=== PATIENT | male | born 1970 | race Hispanic/Latino ===

== ENCOUNTER 2018-02-10 12:12 | Emergency (ER) | payer SELFPAY ==
[2018-02-10] MEDS ORDERED: MORPHINE 4 MG/ML SYR ONE (12:21)
[2018-02-10] MEDS ORDERED: ONDANSETRON 4 MG/2 ML VIAL ONE (12:22)
[2018-02-10 12:38] LABS: Absolute Lymphocytes (CBC) 3.7 K/uL (0.7-4.9); Basophils % 0.3 % (0-1.3); Eosinophils % 1.4 % (0-4.4); Hematocrit 41.7 % (39.6-49.0); Lymphocytes % 24.7 % (15.3-44.8); MCH 28.5 pg (27.0-35.0); MCV 83.8 fL (80-100); MPV 9.9 fL (7.6-11.3); Monocytes % 6.5 % (3.3-12.3); RBC Red Blood Cell Count 4.98 M/uL (4.33-5.43)
--- NOTE | 2018-02-10 12:41 | RAD REPORT ---
EXAM DESCRIPTION: RAD - Wrist Left 3 View - 02/10/2018 12:29 pm CLINICAL HISTORY: Left wrist pain status post fall FINDINGS: Comminuted, markedly displaced impacted fracture involves the distal radius. Comminuted fracture of the ulnar styloid process is seen. No dislocation is visualized
[2018-02-10] MEDS ORDERED: CEFAZOLIN/SWI 1gm 1 GM/10 ML SYR ONE (12:49)
[2018-02-10 13:00] LABS: Potassium 3.8 mmol/L (3.5-5.1)
--- NOTE | 2018-02-10 13:04 | RAD REPORT ---
EXAM DESCRIPTION: CT - Head C Spine Cap Debbie Espinoza - 02/10/2018 12:40 pm CLINICAL HISTORY: Trauma, head and neck injury. Chest, abdomen and pelvis pain. fall about 25' onto left side;Pain COMPARISON: No comparisons TECHNIQUE: CT head without contrast. CT cervical spine without contrast with coronal and sagittal reformatted images. CT chest, abdomen and pelvis with IV contrast (approximately 100 mL nonionic IV contrast) with dangelo l and sagittal reformatted images of the spine. All CT scans are performed using dose optimization technique as appropriate and may include automated exposure control or mA/KV adjustment according to patient size. FINDINGS: CT HEAD WITHOUT CONTRAST: No intracranial hemorrhage, hydrocephalus or extra-axial fluid collection. No areas of brain edema o r midline shift. The paranasal sinuses and mastoids are clear. The calvarium is intact. CT CERVICAL SPINE WITHOUT CONTRAST: No fracture or subluxation. The prevertebral soft tissues are normal in thickness. CT CHEST, ABDOMEN, PELVIS WITH CONTRAST: The lungs are clear.No pneumothorax or pericardial/pleural fluid. No evidence of solid organ laceration. No free fluid or free air in the abdomen. Focal nonspecific ar ea of fat stranding is seen in the right aspect of the intraperitoneal fat within the abdomen posteri shabana measuring 4 cm. This is of unclear etiology and clinical significance. A burst fracture is seen involving the T12 vertebral body with loss of approximately 15% of vertebral body height. No canal compromise of significant suspected. Mildly displaced left L2 and L3 transvers e process fracture seen. Fracture involving the left aspect of the L4 vertebral body is noted, predom inately involving the left inferolateral corner. IMPRESSION: T12 burst fracture without significant canal compromise. Vertebral body height loss is e stimated at 15%. Vertebral body fracture involving the left inferolateral corner of L4. Transverse process fractures on the left of L2 and L3. Focal nonspecific area fat stranding right intraperitoneal abdominal fat is nonspecific but may repre sent area of fat infarction.
--- NOTE | 2018-02-10 13:20 | RAD REPORT ---
EXAM DESCRIPTION: RAD - Forearm Left - 02/10/2018 12:58 pm CLINICAL HISTORY: PAIN Trauma COMPARISON: Wrist Left 3 View dated 02/10/2018 FINDINGS: Examination is limited by nonstandard anatomic positioning. Significantly displaced and co mminuted distal radius fracture is present. An elbow dislocation is not seen. Further bone detail is limited.
--- NOTE | 2018-02-10 13:35 | ER ---
Nurse's Notes [facility] Name: Farhana Villanueva Age: 47 yrs Sex: Male : 1970 Arrival Date: 02/10/2018 Time: 12:14 Bed 2 Private MD: Diagnosis: Other slipping, tripping and stumbling and falls-25" Presentation: 02/10 12:05 Presenting complaint: Patient states: fell off ladder, approx 25 feet, fell onto left iw side, open fracture to left wrist, c/o pain to left shoulder/arm, pain to neck, and lower back, denies hitting head, denies LOC. Care prior to arrival: None. Mechanism of Injury: Fall from ladder approximately 25 feet. Trauma event details: Injury occurred in the [facility]. 12:05 Acuity: DONG 2 iw 12:05 Method Of Arrival: Wheelchair iw 12:17 Transition of care: patient was not received from another setting of care. Onset of iw symptoms was February 10, 2018. Risk Assessment: Do you want to hurt yourself or someone else? Patient reports no desire to harm self or others. Initial Sepsis Screen: Does the patient meet any 2 criteria? No. Patient's initial sepsis screen is negative. Does the patient have a suspected source of infection? No. Patient's initial sepsis screen is negative. Trauma Activation: Alert Physician: ED Physician; Name: Dr. Mclean; Notified At: 12:06; Arrived At: 12:06 Physician: General Surgeon; Name: N/A; Notified At: 12:06; Arrived At: Specialty not needed Physician: Radiology; Name: Whitney; Notified At: 12:06; Arrived At: 12:06 Physician: Respiratory; Name: N/A; Notified At: 12:06; Arrived At: Specialty not needed Physician: Lab; Name: N/A; Notified At: 12:06; Arrived At: Specialty not needed Historical: - Allergies: 12:17 NKA; iw - Home Meds: 12:17 None [Active]; iw - PMHx: 12:17 None; iw - PSHx: 12:17 None; iw Screenin:17 Abuse screen: Denies threats or abuse. Denies injuries from another. Tuberculosis iw screening: No symptoms or risk factors identified. Primary Survey: 12:10 A: Airway: patent. Breathing/Chest: Respiratory pattern: regular, Respiratory effort: iw spontaneous, Breath sounds: clear, bilaterally. Chest inspection: symmetrical rise and fall of the chest. Circulation: Heart tones present. Pulses: palpable right radial artery, left radial artery, left carotid pulse and right carotid pulse. Skin color: pink, Skin temperature: warm, diaphoretic. Disability Alert. 12:15 Reassessment Airway Airway Oxygen No O2 Breathing/Chest Respiratory pattern Regular iw Respiratory effort Spontaneous Unlabored Chest inspection Symmetrical Circulation Heart rhythm Sinus rhythm Heart tones Present Color Artemus Disability Alert. Secondary Survey: 12:15 HEENT: No deficits noted. Head No injury/deformity Face No injury/deformity Eyes: No iw injury or deformity noted. to bilateral eyes. Ears: clear bilaterally. Nose: clear to bilateral nares. Gastrointestinal: Abdomen is soft, obese, Bowel sounds present in all quadrants. Palpation No deficit noted. Musculoskeletal: Range of motion: limited in left shoulder and left wrist Bony deformity noted of left wrist Reports pain in lumbar area, left low back, right low back and left arm. Injury Description: fracture to is located left wrist. 12:15 Musculoskeletal: Capillary refill < 3 seconds, in bilateral fingers. iw Assessment: 12:10 General: Appears uncomfortable, Behavior is cooperative, anxious. Pain: Complains of iw pain in posterior cervical area, lumbar area, left low back, right low back and left arm. Neuro: Level of Consciousness is awake, alert, obeys commands, Oriented to person, place, time, situation, Moves all extremities. Full function. Cardiovascular:. Respiratory: Respiratory effort is even, unlabored. Derm: Skin is diaphoretic, Skin is normal. Musculoskeletal: Range of motion: limited in left shoulder and left wrist Bony deformity noted of dorsal aspect of left forearm and left wrist. 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 Dr. Mclean notified. hb 13:21 Reassessment: Patient appears in no apparent distress at this time. pt requesting sg water, pt remains NPO, oral hygiene care provided. Vital Signs: 12:15 BP 132 / 97; Pulse 74; Resp 18 S; Temp 98.2; Pulse Ox 96% on R/A; Pain 10/10; iw 12:20 BP 134 / 89; Pulse 76; Resp 18; Temp 98.2; Pulse Ox 97% on R/A; Pain 10/10; iw 13:06 BP 126 / 92; Pulse 95 MON; Resp 27 S; Pulse Ox 96% on R/A; Pain 10/10; sg 13:06 Temp 97.9; sg 13:42 BP 137 / 73; Pulse 90; Resp 17 S; Pulse Ox 97% on R/A; Pain 8/10; sg Juancarlos Coma Score: 12:05 Eye Response: spontaneous(4). Verbal Response: oriented(5). Motor Response: obeys iw commands(6). Total: 15. 13:06 Eye Response: spontaneous(4). Verbal Response: oriented(5). Motor Response: obeys sg commands(6). Total: 15. 13:42 Eye Response: spontaneous(4). Verbal Response: oriented(5). Motor Response: obeys sg commands(6). Total: 15. Trauma Score (Adult): 12:05 Eye Response: spontaneous(1); Verbal Response: oriented(1); Motor Response: obeys iw commands(2); Systolic BP: > 89 mm Hg(4); Respiratory Rate: 10 to 29 per min(4); Juancarlos Score: 15; Trauma Score: 12 13:06 Eye Response: spontaneous(1); Verbal Response: oriented(1); Motor Response: obeys sg commands(2); Systolic BP: > 89 mm Hg(4); Respiratory Rate: 10 to 29 per min(4); [place] Score: 15; Trauma Score: 12 13:42 Eye Response: spontaneous(1); Verbal Response: oriented(1); Motor Response: obeys sg commands(2); Systolic BP: > 89 mm Hg(4); Respiratory Rate: 10 to 29 per min(4); Juancarlos Score: 15; Trauma Score: 12 ED Course: 12:00 Rigid cervical collar applied. sg 12:10 Initial lab(s) drawn, by me, sent to lab. Inserted saline lock: 20 gauge in right hand, sg using aseptic technique. Blood collected. 12:10 Patient has correct armband on for positive identification. Bed in low position. Call sg light in reach. Side rails up X2. secured entrance monitor on. Pulse ox on. NIBP on. Warm blanket given. Head of bed lowered. 12:14 Patient arrived in ED. iw 12:14 Oliverio Mclean MD is Attending Physician. kdr 12:16 Triage completed. iw 12:[address] vr 12:25 X-ray completed. Portable x-ray completed in exam room. Patient tolerated procedure jb2 well. 12:27 Pepe Montoya, RN is Primary Nurse. sg 12:29 Wrist Left (3 View) XRAY In Process Unspecified. EDMS 12:31 CT completed. Patient tolerated procedure well. Patient moved to CT via stretcher. sj Patient moved back from CT. 12:40 CT Traumagram (Head C Spine CAP W Con) In Process Unspecified. EDMS 12:55 X-ray completed. Portable x-ray completed in exam room. Patient tolerated procedure jb2 well. 12:57 Forearm Left XRAY In Process Unspecified. EDMS 13:37 initiated transfer with Ale from [facility] \\\\[phone]. eb 14:03 connected trauma doctor from [facility] with for patient consult. eb 14:07 administrative approval given by Ale Rutledge RN. Patient is to go to the ER. report to be eb called to [phone]. 14:52 IV is patent, is intact, 18 G IV established by rvda master certified rv technician in [place]. Juma wrap to left elbow sg and left wrist Orthoglass splint: Sugar tong splint applied on left arm. Sling applied to left arm. Administered Medications: 12:20 Drug: morphine 4 mg Route: IVP; Site: right hand; sg 12:30 Follow up: Response: No adverse reaction sg 12:20 Drug: Zofran 4 mg Route: IVP; Site: right hand; sg 12:50 Follow up: Response: No adverse reaction sg 12:50 Drug: Ancef 1 grams Route: IVPB; Site: right hand; sg 14:05 Drug: fentaNYL (PF) 50 mcg Route: IVP; Site: right antecubital; hb 14:35 Follow up: Response: No adverse reaction; Pain is decreased sg 15:03 Drug: fentaNYL (PF) 50 mcg Route: IVP; Site: right antecubital; sg Outcome: 13:34 ER care complete, transfer ordered by . kdr 15:03 Patient left the ED. sg Signatures: Dispatcher [employer] EDPepe Villegas RN RN sg Rittger, Kevin, MD MD kdr Buechter, Jesse jb2 Jones, Susan sj Williams, Irene, RN Bhumika He Heather, RN RN hb Botello, Elizabeth eb Corrections: (The following items were deleted from the chart) 12:21 12:15 Pulse 74bpm; Resp 18bpm; Spontaneous; Pulse Ox 96% RA; Temp 98.2F; iw iw 13:22 13:21 Reassessment: Patient appears in no apparent distress at this time. pt requesting water, pt remains NPO, oral care provided 14:06 14:03 connected trauma doctor issa [facility] with for patient consult parag
--- NOTE | 2018-02-10 13:35 | EDPHYS ---
Physician Documentation [facility] Name: Farhana Villanueva Age: 47 yrs Sex: Male : 1970 Arrival Date: 02/10/2018 Time: 12:14 Bed 2 Private MD: ED Physician Oliverio Mclean HPI: 02/10 15:58 This 47 yrs old Male presents to ER via Wheelchair with complaints of Fall kdr Injury. 15:58 Details of fall: The patient fell from a height, from a ladder, approximately 25 feet. kdr Onset: The symptoms/episode began/occurred suddenly, just prior to arrival. Associated injuries: The patient sustained upper back injury, injury to the low back, decreased range of motion, pain, pain with movement, left arm, contusion, decreased range of motion. Severity of symptoms: At their worst the symptoms were mild, in the emergency department the symptoms are unchanged. The patient has not experienced similar symptoms in the past. The patient has not recently seen a physician. Historical: - Allergies: 12:17 NKA; iw - Home Meds: 12:17 None [Active]; iw - PMHx: 12:17 None; iw - PSHx: 12:17 None; iw ROS: 15:58 Constitutional: Negative for fever, chills, and weight loss, Eyes: Negative for injury, kdr pain, redness, and discharge, ENT: Negative for injury, pain, and discharge, Neck: Negative for injury, pain, and swelling, Cardiovascular: Negative for chest pain, palpitations, and edema, Respiratory: Negative for shortness of breath, cough, wheezing, and pleuritic chest pain, Abdomen/GI: Negative for abdominal pain, nausea, vomiting, diarrhea, and constipation, : Negative for injury, bleeding, discharge, and swelling, Skin: Negative for injury, rash, and discoloration, Neuro: Negative for headache, weakness, numbness, tingling, and seizure activity. Psych: Negative for depression, anxiety, suicide ideation, homicidal ideation, and hallucinations, Allergy/Immunology: Negative for hives, rash, and allergies, Endocrine: Negative for neck swelling, polydipsia, polyuria, polyphagia, and marked weight changes, Hematologic/Lymphatic: Negative for swollen nodes, abnormal bleeding, and unusual bruising. 15:58 Back: Positive for injury or acute deformity, decreased range of motion, pain at rest, pain with movement, of the lumbar area. Exam: 16:11 Constitutional: This is a well developed, well nourished patient who is awake, alert, kdr and in no acute distress. Head/Face: Normocephalic, atraumatic. Eyes: Pupils equal round and reactive to light, extra-ocular motions intact. Lids and lashes normal. Conjunctiva and sclera are non-icteric and not injected. Cornea within normal limits. Periorbital areas with no swelling, redness, or edema. Neck: Trachea midline, no thyromegaly or masses palpated, and no cervical lymphadenopathy. Supple, full range of motion without nuchal rigidity, or vertebral point tenderness. No Meningismus. Chest/axilla: Normal chest wall appearance and motion. Nontender with no deformity. No lesions are appreciated. Cardiovascular: Regular rate and rhythm with a normal S1 and S2. No gallops, murmurs, or rubs. Normal PMI, no JVD. No pulse deficits. Respiratory: Lungs have equal breath sounds bilaterally, clear to auscultation and percussion. No rales, rhonchi or wheezes noted. No increased work of breathing, no retractions or nasal flaring. Abdomen/GI: Soft, non-tender, with normal bowel sounds. No distension or tympany. No guarding or rebound. No evidence of tenderness throughout. Skin: Warm, dry with normal turgor. Normal color with no rashes, no lesions, and no evidence of cellulitis. Neuro: Awake and alert, GCS 15, oriented to person, place, time, and situation. Cranial nerves II-XII grossly intact. Motor strength 5/5 in all extremities. Sensory grossly intact. Cerebellar exam normal. Normal gait. Psych: Awake, alert, with orientation to person, place and time. Behavior, mood, and affect are within normal limits. 16:11 Musculoskeletal/extremity: There is deformity of the left wrist with an open wound on the ulnar aspect of the wrist. He is n/v intact distal to the injury. Vital Signs: 12:15 BP 132 / 97; Pulse 74; Resp 18 S; Temp 98.2; Pulse Ox 96% on R/A; Pain 10/10; iw 12:20 BP 134 / 89; Pulse 76; Resp 18; Temp 98.2; Pulse Ox 97% on R/A; Pain 10/10; iw 13:06 BP 126 / 92; Pulse 95 MON; Resp 27 S; Pulse Ox 96% on R/A; Pain 10/10; sg 13:06 Temp 97.9; sg 13:42 BP 137 / 73; Pulse 90; Resp 17 S; Pulse Ox 97% on R/A; Pain 8/10; sg Dandridge Coma Score: 12:05 Eye Response: spontaneous(4). Verbal Response: oriented(5). Motor Response: obeys iw commands(6). Total: 15. 13:06 Eye Response: spontaneous(4). Verbal Response: oriented(5). Motor Response: obeys sg commands(6). Total: 15. 13:42 Eye Response: spontaneous(4). Verbal Response: oriented(5). Motor Response: obeys sg commands(6). Total: 15. Trauma Score (Adult): 12:05 Eye Response: spontaneous(1); Verbal Response: oriented(1); Motor Response: obeys iw commands(2); Systolic BP: > 89 mm Hg(4); Respiratory Rate: 10 to 29 per min(4); Juancarlos Score: 15; Trauma Score: 12 13:06 Eye Response: spontaneous(1); Verbal Response: oriented(1); Motor Response: obeys sg commands(2); Systolic BP: > 89 mm Hg(4); Respiratory Rate: 10 to 29 per min(4); Dandridge Score: 15; Trauma Score: 12 13:42 Eye Response: spontaneous(1); Verbal Response: oriented(1); Motor Response: obeys sg commands(2); Systolic BP: > 89 mm Hg(4); Respiratory Rate: 10 to 29 per min(4); Dandridge Score: 15; Trauma Score: 12 MDM: 13:34 Patient medically screened. kdr 16:11 Data reviewed: vital signs, nurses notes, lab test result(s), radiologic studies. kdr Counseling: I had a detailed discussion with the patient and/or guardian regarding: the historical points, exam findings, and any diagnostic results supporting the discharge/admit diagnosis, lab results, radiology results, the need to transfer to another facility. 02/10 12:15 Order name: Basic Metabolic Panel; Complete Time: 15:47 kdr 02/10 12:15 Order name: CBC with Diff; Complete Time: 15:47 [facility] [address] 02/10 12:15 Order name: CT Traumagram (Head C Spine CAP W Con); Complete Time: 15:47 [facility] [address] 02/10 12:15 Order name: Creatinine for Radiology; Complete Time: 15:47 [facility] [address] 02/10 12:15 Order name: Type And Screen; Complete Time: 15:47 [facility] [address] 02/10 14:03 Order name: Urine Dipstick--Ancillary (enter results) 02/10 12:15 Order name: Labs collected and sent; Complete Time: 12:43 [facility] [address] 02/10 12:15 Order name: Wrist Left (3 View) XRAY; Complete Time: 12:57 kdr 02/10 12:15 Order name: Forearm Left XRAY; Complete Time: 15:47 [facility] [address] 02/10 12:15 Order name: Urine Dipstick-Ancillary (obtain specimen); Complete Time: 12:43 [facility] [address] 02/10 13:38 Order name: Sugar Tong Forearm Splint; Complete Time: 14:48 02/10 13:38 Order name: Wound Care; Complete Time: 14:48 sg Administered Medications: 12:20 Drug: morphine 4 mg Route: IVP; Site: right hand; sg 12:30 Follow up: Response: No adverse reaction sg 12:20 Drug: Zofran 4 mg Route: IVP; Site: right hand; sg 12:50 Follow up: Response: No adverse reaction sg 12:50 Drug: Ancef 1 grams Route: IVPB; Site: right hand; sg 14:05 Drug: fentaNYL (PF) 50 mcg Route: IVP; Site: right antecubital; hb 14:35 Follow up: Response: No adverse reaction; Pain is decreased sg 15:03 Drug: fentaNYL (PF) 50 mcg Route: IVP; Site: right antecubital; sg Disposition: 02/10/18 13:34 Transfer ordered to [facility]. Diagnosis is Other slipping, tripping and stumbling and falls - 25". - Reason for transfer: Higher level of care. - Accepting physician is Tuan Trauma. - Condition is Fair. - Problem is new. - Symptoms have improved. Signatures: Dispatcher [employer] Pepe Lopez RN RN sg Oliverio Mclean MD MD [facility] [address] Kathi Zamora RN RN Dominique Guerrero RN RN Corrections: (The following items were deleted from the chart) 15:03 13:34 02/10/2018 13:34 Transfer ordered to [facility]. sg Diagnosis is Other slipping, tripping and stumbling and falls - 25". Reason for transfer: Higher level of care. Accepting physician is Tuan Ellis. Condition is Fair. Problem is new. Symptoms have improved. kdr
[2018-02-10] MEDS ORDERED: FENTANYL CITR 100 MCG/2 ML ONE (14:00)
[2018-02-10 14:16] LABS: Urine Blood 1+ (NEG); Urine Glucose NEGATIVE (NEG); Urine Protein 2+ (NEG); Urine Specific Gravity 1.015 (1.005-1.030); Urine pH 6.5 (5.0-7.0)
== END 2018-02-10 15:03 | disposition short-term general hospital (02) ==
LOC: ER 12:12
DX: S61.502A Unspecified open wound of left wrist, initial encounter (principal); W11.XXXA Fall on and from ladder, initial encounter; Y93.89 Activity, other specified; Y92.9 Unspecified place or not applicable; Y99.9 Unspecified external cause status
CPT/HCPCS: 36415; 70450; 71260; 72125; 74177; 80048; 81003; 85025; 86850; 86900; 86901; 99285; J0690; J2405; J3010; Q9967